=== PATIENT | male | born 1995 | race Caucasian/White ===

== ENCOUNTER 2017-07-02 15:41 | Emergency (ER) | payer MEDICAID, OTHER ==
[~2017-07-02] VITALS: Ht 172.7 cm; Wt 84.3 kg
[2017-07-02 15:46] VITALS: BP 118/70
[2017-07-02] MEDS ORDERED: DEXAMETHASONE 4 MG TABLET ONE (17:14)
[2017-07-02] MEDS ORDERED: DEXAMETHASONE 4 MG TABLET PO ONE (17:30)
== END 2017-07-02 17:52 | disposition home or self-care (01) ==
LOC: ED 17:30
DX: M54.16 Radiculopathy, lumbar region (principal)
CPT/HCPCS: 72110; 99284

== ENCOUNTER 2020-03-25 22:49 | Emergency (ER) | payer MEDICAID, OTHER ==
[~2020-03-25] VITALS: Ht 172.7 cm; Wt 91.0 kg
[2020-03-25 22:55] VITALS: BP 116/75
--- NOTE | 2020-03-25 23:19 | NUR ---
24/M. Playing soccer [employer]. Fell and injured back. Pt reports falling and feeling instant pain. Assistance with ambulation. 04/06 pain.
[2020-03-25] MEDS ORDERED: DIAZEPAM 5 MG TABLET ONE (23:21)
[2020-03-25] MEDS ORDERED: KETOROLAC 30 MG/1 ML ONE (23:21)
[2020-03-25] MEDS ORDERED: DIAZEPAM 5 MG TABLET PO ONE (23:30)
[2020-03-25] MEDS ORDERED: KETOROLAC 30 MG/1 ML IM ONE (23:30)
--- NOTE | 2020-03-25 23:58 | NUR ---
MRI screening completed. Pt clothing removed from pt. No metal or jewelry per pt .
[2020-03-26] MEDS ORDERED: HYDROcodone/APAP 5/325 TABLET ONE (03:22)
[2020-03-26] MEDS ORDERED: HYDROcodone/APAP 5/325 TABLET PO ONE (03:30)
== END 2020-03-26 03:29 | disposition home or self-care (01) ==
LOC: ED 03-26 01:15
DX: G89.11 Acute pain due to trauma (principal); M54.5 Low back pain; M51.16 Intervertebral disc disorders with radiculopathy, lumbar region; M53.3 Sacrococcygeal disorders, not elsewhere classified; M79.10 Myalgia, unspecified site
CPT/HCPCS: 72148; 96372; 99284; J1885